=== PATIENT | female | born 1990 | race Caucasian/White ===

== ENCOUNTER 2016-12-23 15:08 | Inpatient (IN) | payer MEDICAID ==
[~2016-12-23] VITALS: Ht 162.6 cm; Wt 63.1 kg
[~2016-12-23 15:08] MED LIST: INSLISPI SC; LABE200T18 PO; PANT1INJ3 PO; REGLAN PO; SUCR1TAB36 PO
[2016-12-23] MEDS ORDERED: ONDANSETRON HCL 4 MG/2 ML VIAL IV ONE (16:00)
[2016-12-23] MEDS ORDERED: HYDROmorphone HCL 2 MG/ML VL IV ONE ×2 (16:00→17:30)
[2016-12-23] MEDS ORDERED: InsuLIN REG 1unit/0.01ml Soln (100units/ml) IV ONE (16:15)
[2016-12-23] MEDS ORDERED: InsuLIN R (HUMAN) 100 UNITS in SODIUM CHL 0.9% 99 ML IV SCH (17:40)
[2016-12-23] MEDS ORDERED: DEXTROSE (50%) 50ML SYRG IV PRN ×2 (17:45→18:30)
[2016-12-23] MEDS: SODIUM CHLORIDE 0.9% 1,000 ML IV SCH ×2 (18:20→20:38)
[2016-12-23] MEDS ORDERED: TEMAZEPAM 15 MG CAP PO PRN (18:30)
[2016-12-23] MEDS ORDERED: MORPHINE SULFATE 10 MG/ML INJ 1ML SDV IV PRN (18:30)
[2016-12-23] MEDS ORDERED: NITROGLYCERIN 0.4 MG SL TAB SL PRN (18:30)
[2016-12-23] MEDS ORDERED: LORazepam 2MG/ML-1ML VIAL IV PRN (18:30)
[2016-12-23] MEDS: ACCU-CHEK COMFORT CURVE STRIP VI SCH ×5 (19:30→22:30)
[2016-12-23] MEDS: PROMETHAZINE HCL 25 MG/ML 1ML IV PRN (19:43)
[2016-12-23] MEDS: MORPHINE SULFATE 10 MG/ML INJ 1ML SDV IV PRN ×2 (19:52→23:33)
[2016-12-23] MEDS: FAMOTIDINE (10MG/ML) 2ML VL IV SCH (20:46)
[2016-12-23] MEDS ORDERED: SODIUM CHLORIDE 0.9% 1,000 ML IV SCH ×2 (21:40→23:40)
[2016-12-24] VITALS (9 sets, daily range): BP systolic 152–197; BP diastolic 78–101
[2016-12-24] MEDS: ACCU-CHEK COMFORT CURVE STRIP VI SCH ×7 (00:03→20:00)
[2016-12-24] MEDS: MORPHINE SULFATE 10 MG/ML INJ 1ML SDV IV PRN ×4 (00:09→18:00)
[2016-12-24 00:43] LABS: Basophils # (auto) 0.1 uL; Basophils % (auto) 1.1 % (0.0-2.0); Eosinophils # (auto) 0.2 uL; Eosinophils % (auto) 1.4 % (0.0-7.0); Hematocrit 26.9 % (36.0-46.0); Hemoglobin 8.9 g/dL (12.2-16.2); Lymphocytes # (auto) 0.7 uL; Lymphocytes % (auto) 5.6 % (10.0-50.0); Mean Corpuscular Hemoglobin 30.5 pg (28.0-32.0); Mean Corpuscular Hgb Conc. 33.2 g/dL (32.0-36.0); Mean Corpuscular Volume 91.9 fL (80.0-100.0); Monocytes # (auto) 1.2 uL; Monocytes % (auto) 9.2 % (0.0-12.0); Neutrophils # (auto) 10.9 uL; Neutrophils % (auto) 82.7 % (37.0-80.0); Platelet Count (auto) 243 10^3/uL (140-450); Red Blood Cells 2.93 10^6/uL (4.0-5.20); Red Cell Distribution Width 15.6 % (11.8-14.3); White Blood Cell 13.2 10^3/uL (4.4-10.8)
[2016-12-24 00:57] LABS: Partial Thromboplastin Time 28.2 sec (22.64-33.71); Prothrombin Time 10.9 sec (9.37-12.3)
[2016-12-24 01:01] LABS: Albumin 3.3 g/dL (3.4-5.0); BUN/Creatinine Ratio 11.4; Potassium 3.8 mmol/L (3.5-5.1)
[2016-12-24 01:04] LABS: Bilirubin, Total 0.4 mg/dL (0.2-1.0); Total Protein 6.2 g/dL (6.4-8.2)
[2016-12-24 01:12] LABS: CRP High Sensitivity 2.11 mg/dL (< 0.3)
[2016-12-24] MEDS ORDERED: HYDROcodone-ACET 5/325MG TAB PO PRN ×2 (01:30→15:45)
[2016-12-24] MEDS ORDERED: HYDROmorphone HCL 2 MG TAB PO ONE (01:30)
[2016-12-24] MEDS ORDERED: DEXTROSE (50%) 50ML SYRG IV PRN (01:30)
[2016-12-24] MEDS ORDERED: D5W/SOD CHLO 0.9% 1,000 ML IV SCH (01:45)
[2016-12-24] MEDS ORDERED: MORPHINE SULFATE 10 MG/ML INJ 1ML SDV IV PRN (01:45)
[2016-12-24] MEDS: PROMETHAZINE HCL 25 MG/ML 1ML IV PRN ×4 (01:55→21:15)
[2016-12-24] MEDS: InsuLIN REG 1unit/0.01ml Soln (100units/ml) SC SCH ×5 (04:00→20:00)
[2016-12-24] MEDS: FAMOTIDINE (10MG/ML) 2ML VL IV SCH (06:25)
[2016-12-24] MEDS ORDERED: ALBUTEROL SULF 2.5 MG/0.5ML(0.5%) NEB SOLN NEB PRN (06:45)
[2016-12-24 08:19] LABS: Basophils # (auto) 0.1 uL; Eosinophils # (auto) 0.3 uL; Eosinophils % (auto) 1.9 % (0.0-7.0); Hematocrit 29.6 % (36.0-46.0); Hemoglobin 9.6 g/dL (12.2-16.2); Lymphocytes % (auto) 7.5 % (10.0-50.0); Mean Corpuscular Hemoglobin 29.9 pg (28.0-32.0); Mean Corpuscular Hgb Conc. 32.4 g/dL (32.0-36.0); Mean Corpuscular Volume 92.1 fL (80.0-100.0); Monocytes % (auto) 7.1 % (0.0-12.0); Neutrophils # (auto) 11.6 uL; Neutrophils % (auto) 82.5 % (37.0-80.0); Platelet Count (auto) 299 10^3/uL (140-450); Red Blood Cells 3.21 10^6/uL (4.0-5.20); Red Cell Distribution Width 15.8 % (11.8-14.3)
[2016-12-24 08:35] LABS: Albumin 3.5 g/dL (3.4-5.0); BUN/Creatinine Ratio 10.7; Calcium 8.3 mg/dL (8.5-10.1); Potassium 4.1 mmol/L (3.5-5.1)
[2016-12-24 08:38] LABS: Bilirubin, Total 0.6 mg/dL (0.2-1.0); Total Protein 6.7 g/dL (6.4-8.2)
[2016-12-24] MEDS ORDERED: diphenhdrAMINE HCL 50 MG/1 ML VL IV ONE (11:30)
[2016-12-24] MEDS ORDERED: EPOETIN ALFA 10,000 UNIT/1 ML VIAL IV ONE (11:30)
[2016-12-24] MEDS ORDERED: METOCLOPRAMIDE HCL 10 MG TAB PO PRN (15:45)
[2016-12-24] MEDS: LABETALOL HCL 200 MG TAB PO SCH ×2 (16:11→21:15)
[2016-12-24] MEDS: SUCRALFATE 1 GM TAB PO SCH (17:08)
[2016-12-25] MEDS: ACCU-CHEK COMFORT CURVE STRIP VI SCH ×5 (00:04→16:30)
[2016-12-25] MEDS: InsuLIN REG 1unit/0.01ml Soln (100units/ml) SC SCH ×5 (00:04→16:54)
[2016-12-25] MEDS: MORPHINE SULFATE 10 MG/ML INJ 1ML SDV IV PRN ×4 (00:05→18:09)
[2016-12-25 05:00] VITALS: BP 154/86
[2016-12-25] MEDS: SUCRALFATE 1 GM TAB PO SCH ×3 (06:10→17:02)
[2016-12-25] MEDS: PROMETHAZINE HCL 25 MG/ML 1ML IV PRN ×2 (06:38→17:03)
[2016-12-25 08:00] VITALS: BP 150/87
[2016-12-25] MEDS ORDERED: PANTOPRAZOLE 40 MG TAB PO SCH (10:00)
[2016-12-25] MEDS: LABETALOL HCL 200 MG TAB PO SCH ×2 (10:35→12:00)
[2016-12-25 11:28] LABS: Basophils # (auto) 0.1 uL; Eosinophils # (auto) 0.2 uL; Eosinophils % (auto) 3.7 % (0.0-7.0); Hematocrit 24.7 % (36.0-46.0); Hemoglobin 8.1 g/dL (12.2-16.2); Lymphocytes # (auto) 1.2 uL; Lymphocytes % (auto) 18.1 % (10.0-50.0); Mean Corpuscular Hemoglobin 30.5 pg (28.0-32.0); Mean Corpuscular Hgb Conc. 32.8 g/dL (32.0-36.0); Mean Corpuscular Volume 93.1 fL (80.0-100.0); Monocytes # (auto) 0.8 uL; Monocytes % (auto) 11.6 % (0.0-12.0); Neutrophils # (auto) 4.3 uL; Neutrophils % (auto) 65.6 % (37.0-80.0); Platelet Count (auto) 200 10^3/uL (140-450); Red Blood Cells 2.66 10^6/uL (4.0-5.20); Red Cell Distribution Width 16.1 % (11.8-14.3); White Blood Cell 6.5 10^3/uL (4.4-10.8)
[2016-12-25 11:43] LABS: BUN/Creatinine Ratio 7.6; Calcium 7.8 mg/dL (8.5-10.1); Potassium 3.9 mmol/L (3.5-5.1)
[2016-12-25] MEDS ORDERED: HYOSCYAMINE SULF 0.125 MG TAB PO PRN (12:15)
[2016-12-25 13:00] VITALS: BP 190/94
[2016-12-25] MEDS ORDERED: METO-281 PO ×2 (14:15)
[2016-12-25] MEDS ORDERED: HYOS0.1220 PO ×2 (14:16)
[2016-12-25] MEDS ORDERED: ONDA4TAB8 PO ×2 (14:16)
[2016-12-25 18:00] VITALS: BP 168/88
[2016-12-25 18:38] VITALS: BP 168/88
== END 2016-12-25 19:15 | disposition home health service (06) | DRG 420 ==
LOC: EDUNIT# 15:08 → EDBD 15:08 → ER 15:16 → TELE 15:17 → TELE-WESTW 12-24 02:54
PROVIDERS: ADMIT Internal Medicine; ATTEND Internal Medicine
PROC: 5A1D70Z Performance of Urinary Filtration, Intermittent, Less than 6 Hours Per Day (ICD-10-PCS; principal; 2016-12-24)
DX: E10.10 Type 1 diabetes mellitus with ketoacidosis without coma (principal); I13.2 Hypertensive heart and chronic kidney disease with heart failure and with stage 5 chronic kidney disease, or end stage renal disease; K31.84 Gastroparesis; E87.70 Fluid overload, unspecified; E11.22 Type 2 diabetes mellitus with diabetic chronic kidney disease; N18.6 End stage renal disease; I12.0 Hypertensive chronic kidney disease with stage 5 chronic kidney disease or end stage renal disease; E11.43 Type 2 diabetes mellitus with diabetic autonomic (poly)neuropathy; K52.9 Noninfective gastroenteritis and colitis, unspecified; I50.9 Heart failure, unspecified; F32.9 Major depressive disorder, single episode, unspecified; F41.9 Anxiety disorder, unspecified; K21.9 Gastro-esophageal reflux disease without esophagitis; D63.8 Anemia in other chronic diseases classified elsewhere; Z80.0 Family history of malignant neoplasm of digestive organs; Z82.5 Family history of asthma and other chronic lower respiratory diseases; Z83.3 Family history of diabetes mellitus; Z85.038 Personal history of other malignant neoplasm of large intestine; Z87.11 Personal history of peptic ulcer disease; Z91.15 Patient's noncompliance with renal dialysis; Z99.2 Dependence on renal dialysis; Z91.013 Allergy to seafood; Z91.018 Allergy to other foods; Z91.09 Other allergy status, other than to drugs and biological substances
CPT/HCPCS: 36415; 36600; 71010; 74176; 80048; 80053; 82010; 82150; 82805; 82962; 83036; 83690; 83735; 85025; 85610; 85652; 85730; 86141; 87081; 90935; 94640; 96361; 96365; 96375; 96376; 99291; J0885; J1815; J2405; J3490; J7042

== ENCOUNTER 2016-12-27 21:41 | Inpatient (IN) | payer MEDICAID ==
[~2016-12-27] VITALS: Ht 162.6 cm; Wt 64.4 kg
[~2016-12-27 21:41] MED LIST changes: +HYOS0.1220 PO; +METO-281 PO; +ONDA4TAB8 PO; +SODIUM BICARBONATE 8.4% INJ 50ML SYRINGE IV ONE
[2016-12-27] MEDS ORDERED: InsuLIN REG 1unit/0.01ml Soln (100units/ml) ONE (22:05)
[2016-12-27] MEDS ORDERED: NOREPINEPHRINE 8 MG/250ML KIT 250 ML IV ONE (22:12)
[2016-12-27] MEDS ORDERED: SODIUM BICARBONATE 8.4% INJ 50ML SYRINGE ONE (22:16)
[2016-12-27] MEDS ORDERED: SODIUM BICARBONATE 8.4 % INJ 50ML VIAL IV ONE ×3 (22:34→22:46)
[2016-12-27] MEDS ORDERED: EPINEPHrine HCL 250 ML IV ONE (22:43)
[2016-12-27] MEDS ORDERED: PANTOPRAZOLE 40 MG/10 ML VIAL IV ONE (23:06)
[2016-12-27 23:15] LABS: Hemoglobin 8.3 g/dL (12.2-16.2); Mean Corpuscular Volume 121.9 fL (80.0-100.0)
[2016-12-27] MEDS ORDERED: PANTOPRAZOLE 80 MG in SODIUM CHL 0.9% 60 ML IV ONE ×4 (23:15)
[2016-12-27] MEDS ORDERED: EPINEPHrine HCL INJECTION 4 MG in D5W 5% 250 ML IV ONE (23:15)
[2016-12-27] MEDS ORDERED: OCTREOTIDE ACETATE 100 MCG in SODIUM CHL 0.9% 50 ML IV ONE (23:15)
[2016-12-27] MEDS ORDERED: NOREPINEPHRINE 8 MG/250ML KIT 250 ML IV SCH (23:15)
[2016-12-27] MEDS ORDERED: SODIUM CHLORIDE IV ONE (23:15)
[2016-12-27] MEDS ORDERED: SODIUM BICARBONATE IV ONE (23:15)
[2016-12-27 23:16] LABS: Hematocrit 33.1 % (36.0-46.0); Mean Corpuscular Hemoglobin 30.5 pg (28.0-32.0); Platelet Count (auto) 163 10^3/uL (140-450); Red Blood Cells 2.71 10^6/uL (4.0-5.20); Red Cell Distribution Width 17.2 % (11.8-14.3); White Blood Cell 8.3 10^3/uL (4.4-10.8)
[2016-12-27 23:19] LABS: Basophils % (manual) 0 (0.0-2.0); Blast Cells 0; Eosinophils % (manual) 0 (0-7); Metamyelocytes % 0; Myelocytes % 0; Promyelocytes % 0; Reactive Lymphocytes 0
[2016-12-27 23:33] LABS: Albumin 2.5 g/dL (3.4-5.0); Calcium 8.5 mg/dL (8.5-10.1); Magnesium 3.3 mg/dL (1.6-2.6)
[2016-12-27 23:35] LABS: Bilirubin, Total 0.9 mg/dL (0.2-1.0); Total Protein 5.6 g/dL (6.4-8.2)
[2016-12-27 23:36] LABS: Band Neutrophils % (manual) 19; Lymphocytes % (manual) 26 (10.0-50.0); Monocytes % (manual) 7 (0-12)
[2016-12-27 23:37] LABS: Lactic Acid w/Reflex 9.8 mmol/L (0.4-2.0)
[2016-12-27 23:40] LABS: INR 1.24 (0.9-1.15); Prothrombin Time 13.6 sec (9.37-12.3)
[2016-12-27 23:45] LABS: BUN/Creatinine Ratio 9.4
[2016-12-27] MEDS ORDERED: OCTREOTIDE ACETATE 100 MCG/ML VL ONE (23:46)
[2016-12-27 23:47] LABS: Partial Thromboplastin Time 76.3 sec (22.64-33.71)
[2016-12-28] VITALS: BP 148/85
[2016-12-28] MEDS ORDERED: ALBUTEROL SULF 2.5 MG/0.5ML(0.5%) NEB SOLN NEB ONE
[2016-12-28] MEDS ORDERED: metroNIDAZOLE 500MG/100ML 100 ML IV ONE (00:15)
[2016-12-28] MEDS ORDERED: PIPERACILLIN-TAZOB 3.375GM 50 ML IV ONE (00:15)
[2016-12-28 01:35] LABS: Basophils # (auto) 0 uL; Eosinophils # (auto) 0 uL; Hemoglobin 10.4 g/dL (12.2-16.2); Lymphocytes # (auto) 1.5 uL; Mean Corpuscular Hemoglobin 30.5 pg (28.0-32.0); Monocytes # (auto) 0.1 uL; Neutrophils # (auto) 5.5 uL; Nucleated Red Blood Cells % 0.2 %; Red Blood Cells 3.41 10^6/uL (4.0-5.20); White Blood Cell 7.1 10^3/uL (4.4-10.8)
[2016-12-28 01:37] LABS: Basophils % (auto) 0.4 % (0.0-2.0); Eosinophils % (auto) 0.3 % (0.0-7.0); Hematocrit 37.4 % (36.0-46.0); Lymphocytes % (auto) 20.5 % (10.0-50.0); Mean Corpuscular Hgb Conc. 27.8 g/dL (32.0-36.0); Mean Corpuscular Volume 109.7 fL (80.0-100.0); Monocytes % (auto) 1.6 % (0.0-12.0); Neutrophils % (auto) 77.2 % (37.0-80.0); Platelet Count (auto) 199 10^3/uL (140-450); Red Cell Distribution Width 16.7 % (11.8-14.3)
[2016-12-28 01:54] LABS: Albumin 2.5 g/dL (3.4-5.0); BUN/Creatinine Ratio 9.5; Bilirubin, Total 1.1 mg/dL (0.2-1.0); Calcium 7.5 mg/dL (8.5-10.1); Total Protein 5.8 g/dL (6.4-8.2)
[2016-12-28 01:58] LABS: Potassium 8.1 mmol/L (3.5-5.1)
[2016-12-28 02:00] VITALS: BP 100/57
[2016-12-28] MEDS ORDERED: SODIUM BICARBONATE 8.4 % INJ 50ML VIAL IV ONE (02:15)
[2016-12-28] MEDS ORDERED: CALCIUM GLUC 4.65 MEQ/10ML 10 ML IV ONE (02:15)
[2016-12-28] MEDS ORDERED: SODIUM BICARBONATE 8.4% INJ 50ML SYRINGE ONE (02:20)
[2016-12-28] MEDS ORDERED: NITROGLYCERIN 0.4 MG SL TAB SL PRN (02:45)
[2016-12-28] MEDS ORDERED: MORPHINE SULFATE 10 MG/ML INJ 1ML SDV IV PRN (02:45)
[2016-12-28] MEDS ORDERED: InsuLIN REG 1unit/0.01ml Soln (100units/ml) ONE (04:13)
[2016-12-28 04:28] VITALS: BP 108/55
[2016-12-28] MEDS ORDERED: DEXTROSE (50%) 50ML SYRG IV PRN (05:00)
[2016-12-28] MEDS ORDERED: InsuLIN R (HUMAN) 100 UNITS in SODIUM CHL 0.9% 99 ML IV SCH (05:00)
[2016-12-28] MEDS ORDERED: EPINEPHrine HCL 250 ML IV ONE (05:40)
[2016-12-28 06:00] VITALS: BP 79/56
[2016-12-28] MEDS ORDERED: PIPERACILLIN-TAZOB 2.25GM 50 ML IV SCH (06:00)
[2016-12-28] MEDS ORDERED: ACCU-CHEK COMFORT CURVE STRIP VI SCH (06:00)
[2016-12-28] MEDS ORDERED: ATROPINE SULF 0.5 MG/5ML SYR IV ONE (13:15)
[2016-12-28] MEDS ORDERED: CALCIUM CHLOR(10%) 100MG/ML 10ML SYRINGE IV ONE (13:15)
[2016-12-28] MEDS ORDERED: SODIUM BICARBONATE 8.4% INJ 50ML SYRINGE IV ONE (13:15)
[2016-12-28] MEDS ORDERED: DEXTROSE (50%) 50ML SYRG IV ONE (13:15)
[2016-12-28] MEDS ORDERED: EPINEPHrine HCL 1 MG/10 ML SYRG IV ONE (13:15)
== END 2016-12-28 06:08 | disposition expired | DRG 720 ==
LOC: ER 21:41 → EDBD 21:41 → TELE 21:42
PROVIDERS: ADMIT Nurse Practitioner Family; ATTEND Internal Medicine Pulmonary Disease
PROC: 5A12012 Performance of Cardiac Output, Single, Manual (ICD-10-PCS; principal; 2016-12-27)
PROC: 5A1935Z Respiratory Ventilation, Less than 24 Consecutive Hours (ICD-10-PCS; 2016-12-27)
PROC: 0BH17EZ Insertion of Endotracheal Airway into Trachea, Via Natural or Artificial Opening (ICD-10-PCS; 2016-12-27)
PROC: 30233N1 Transfusion of Nonautologous Red Blood Cells into Peripheral Vein, Percutaneous Approach (ICD-10-PCS; 2016-12-27)
DX: A41.9 Sepsis, unspecified organism (principal); J96.01 Acute respiratory failure with hypoxia; I46.9 Cardiac arrest, cause unspecified; E43 Unspecified severe protein-calorie malnutrition; E11.10 Type 2 diabetes mellitus with ketoacidosis without coma; E87.1 Hypo-osmolality and hyponatremia; E87.5 Hyperkalemia; N18.6 End stage renal disease; D63.1 Anemia in chronic kidney disease; E11.22 Type 2 diabetes mellitus with diabetic chronic kidney disease; I12.0 Hypertensive chronic kidney disease with stage 5 chronic kidney disease or end stage renal disease; K21.9 Gastro-esophageal reflux disease without esophagitis; F32.9 Major depressive disorder, single episode, unspecified; F41.9 Anxiety disorder, unspecified; Z90.49 Acquired absence of other specified parts of digestive tract; Z79.4 Long term (current) use of insulin; Z80.0 Family history of malignant neoplasm of digestive organs; Z82.5 Family history of asthma and other chronic lower respiratory diseases; Z83.3 Family history of diabetes mellitus; Z87.11 Personal history of peptic ulcer disease; Z99.2 Dependence on renal dialysis; Z91.013 Allergy to seafood; Z91.018 Allergy to other foods; Z68.24 Body mass index [BMI] 24.0-24.9, adult
CPT/HCPCS: 31500; 36415; 36556; 36600; 51702; 70450; 71010; 80053; 82010; 82805; 82962; 83605; 83735; 84484; 85007; 85025; 85027; 85610; 85730; 86850; 86900; 86901; 86920; 87040; 92950; 94002; 94003; 99291; C9113; J0171; J0461; J1642; J1815; J2543; J3490; J7060